=== PATIENT | male | born 1980 | race Hispanic/Latino ===

== ENCOUNTER 2021-06-30 22:43 | Emergency (ER) | payer SELFPAY ==
[2021-06-30 22:49] VITALS: BP 153/100
[2021-06-30] MEDS ORDERED: SODIUM CHLORIDE 0.9% 1000 ML 1,000 ML IV ONE (23:04)
--- NOTE | 2021-06-30 23:11 | Emergency Department Report ---
ED Head Trauma HPI - General Chief complaint: Nausea/Vomiting/Diarrhea Stated complaint: NAUSEA/VOMITING Time Seen by Provider: 06/30/21 22:55 Source: EMS, old records reviewed (from [facility]) Mode of arrival: Ambulatory Limitations: No Limitations - History of Present Illness Initial comments: 40-year-old male with a past medical history of PTSD, anxiety, and WPW presents to the hospital complaining of nausea, vomiting, palpitations after a head in jury. Patient is currently on a 1013 at [facility] signed on June 23 secondary to suicide attempt and anxiety. As per [facility] HPI patient visiting [facility], ran out of money, was stranded had a bad panic attack and tried to hang himself. [facility] around 1[facility] today he was struck in the head by a a very hard basketball causing him to see stars but not pass out. Since head injury he has had a headache not improved with Tylenol which was severe but now currently rated 3/10 in intensity with persistent pressure. He has had multiple episodes of nausea and vomiting with mild hematemesis after retching. He also reports that his blood pressure shot up and his heart rate went to 160s as documented by pulse ox at the facility. Patient here today stating that vomiting has improved but nausea persists. Patient is concerned that he has brain swelling and is at risk for heart attack. No chest pain reported. In addition to WPW patient has a history of prolonged QT. He is not currently on any cardiac medication and does not currently follow-up with a surgical technology instructor. He has never received ablation. Patient reports he had COVID 3 weeks ago As per [facility] notes patient has a history of severe panic attacks with multiple ER visits for the same. His most recent documented progress note on June 28 patient was noted to be irritable, anger, intrusive, manic, anxious, needy, with disorganized behavior, manipulative, and refusing medication - Related Data Allergies/Adverse reactions: Allergies Allergy/AdvReac Type Severity Reaction Status Date / Time promethazine [From Phenergan] Allergy Hives Verified 06/30/21 23:06 ondansetron [From Zofran] AdvReac Unknown Verified 06/30/21 23:06 ED Review of Systems ROS: Stated complaint: NAUSEA/VOMITING Other details as noted in HPI Comment: All other systems reviewed and negative ED Past Medical Hx - Past Medical History Hx Psychiatric Treatment: (PTSD,ANXIETY) Additional medical history: WPW ED Physical Exam - General Limitations: No Limitations - Other Other exam information: General: No acute distress Head: Atraumatic Eyes: normal appearance ENT: Moist mucous membranes Neck: Normal appearance, no midline tenderness Chest: Clear to auscultation bilaterally CV: Mild tachycardia regular Abdomen: Soft, normal bowel sounds, nontender, nondistended, no rebound or guarding Back: Normal inspection Extremity: Normal inspection, full range of motion Neuro: Alert O x 3, no facial asymmetry, speech clear, no gross motor sensory deficit Psych: Appropriate behavior, appears anxious, leg shaking throughout interview Skin: No rash ED Course Vital Signs 06/30/21 22:49 Temperature 98.9 F Pulse Rate 100 H Respiratory 18 Rate Blood Pressure 153/100 [Left] O2 Sat by Pulse 99 Oximetry - Reevaluation(s) Reevaluation #1: 06/30/21 23:31 pt refuses IV, wants to orally hydrate. Also refused Nausea med - Lab Data Result diagrams: 06/30/21 23:00 06/30/21 23:00 Lab Results 06/30/21 06/30/21 06/30/21 Range/Units 23:00 23:00 23:00 WBC 6.5 (4.5-11.0) K/mm3 RBC 4.79 (3.65-5.03) M/mm3 Hgb 14.8 (11.8-15.2) gm/dl Hct 42.8 (35.5-45.6) % MCV 89 (84-94) fl MCH 31 (28-32) pg MCHC 35 H (32-34) % RDW 12.8 L (13.2-15.2) % Plt Count 195 (140-440) K/mm3 Lymph % (Auto) 21.9 (13.4-35.0) % Bucks % (Auto) 7.9 H (0.0-7.3) % Eos % (Auto) 1.4 (0.0-4.3) % Baso % (Auto) 0.6 (0.0-1.8) % Lymph # (Auto) 1.4 (1.2-5.4) K/mm3 Bucks # (Auto) 0.5 (0.0-0.8) K/mm3 Eos # (Auto) 0.1 (0.0-0.4) K/mm3 Baso # (Auto) 0.0 (0.0-0.1) K/mm3 Seg Neutrophils % 68.2 (40.0-70.0) % Seg Neutrophils # 4.5 (1.8-7.7) K/mm3 Sodium 143 (137-145) mmol/L Potassium 4.2 (3.6-5.0) mmol/L Chloride 105.2 (98-107) mmol/L Carbon Dioxide 25 (22-30) mmol/L Anion Gap 17 mmol/L BUN 10 (9-20) mg/dL Creatinine 0.8 (0.8-1.3) mg/dL Estimated GFR > 60 ml/min BUN/Creatinine Ratio 13 % Glucose 116 H (75-100) mg/dL Calcium 8.8 (8.4-10.2) mg/dL Magnesium 1.90 (1.7-2.3) mg/dL Total Bilirubin 0.20 (0.1-1.2) mg/dL AST 19 (5-40) units/L ALT 32 (7-56) units/L Alkaline Phosphatase 88 (35-129) units/L Total Protein 6.8 (6.3-8.2) g/dL Albumin 4.3 (3.9-5) g/dL Albumin/Globulin Ratio 1.7 % TSH 2.620 (0.270-4.200) mlU/mL Free T4 1.17 (0.76-1.46) ng/dL - EKG Data -: EKG Interpreted by Tn EKG shows normal: sinus rhythm, intervals (qtc 441 normal), QRS complexes (qrsd 89 normal), ST-T waves (no stemi) Rate: normal (99) When compared to previous EKG there are: previous EKG unavailable - Radiology Data Radiology results: report reviewed CT HEAD WITHOUT CONTRAST INDICATION / CLINICAL INFORMATION: head injury, n,v. TECHNIQUE: All CT scans at this location are performed using CT dose reduction for ALARA by means of automated exposure control. COMPARISON: None available. FINDINGS: HEMORRHAGE: None. EXTRA-AXIAL SPACES: Normal in size and morphology for the patient's age. VENTRICULAR SYSTEM: Normal in size and morphology for the patient's age. CEREBRAL PARENCHYMA: No significant abnormality. No acute territorial infarct. MIDLINE SHIFT / HERNIATION: None. CEREBELLUM / BRAINSTEM: No significant abnormality. ORBITS: Normal as visualized. SOFT TISSUES: No significant abnormality. SKULL: No significant abnormality. PARANASAL SINUSES / MASTOID AIR CELLS: Normal as visualized. ADDITIONAL FINDINGS: None. IMPRESSION: 1. No acute intracranial abnormality. - Medical Decision Making 40-year-old male currently at [facility] for anxiety and with suicide attack but reports a history of WPW came to the ED with concerns of head injury secondary to nausea and vomiting after being struck in the head by a basketball. Patient also reports his heart rate went up to 160s. EKG shows heart rate of 99 without a significant delta wave noted. He has normal QTC and QRS intervals. He appears visibly anxious on exam. He refused IV access is antiemetics and tolerated p.o. hydration. Labs and CT head did not show any acute abnormalities. Patient will be discharged back to [facility] Critical Care Time: No Critical care attestation.: If time is entered above; I have spent that time in minutes in the direct care of this critically ill patient, excluding procedure time. ED Disposition Clinical Impression: Minor head injury without loss of consciousness, Nausea and vomiting, Anxiety, Palpitations Disposition: 01 HOME / SELF CARE / HOMELESS Is pt being admited?: No Does the pt Need Aspirin: No Condition: Stable Instructions: Nausea and Vomiting, Adult, Palpitations, [id number], Managing Anxiety, Adult, Head Injury, Adult Additional Instructions: Take Tylenol as needed for pain. Follow-up with your doctor or doctor/clinic provided. Return if symptoms worsen as indicated by your discharge instructions. Referrals: NALINI DURAN MD [Staff Physician] - 3-5 Days (cardiology ) [facility] [Provider Group] - 3-5 Days (primary care clinic ) Time of Disposition: 00:23
[2021-06-30 23:25] LABS: Basophils % (Auto) 0.6 % (0.0-1.8); Eosinophils # (Auto) 0.1 K/mm3 (0.0-0.4); Eosinophils % (Auto) 1.4 % (0.0-4.3); Hematocrit 42.8 % (35.5-45.6); Hemoglobin 14.8 gm/dl (11.8-15.2); Lymphocytes # (Auto) 1.4 K/mm3 (1.2-5.4); Lymphocytes % (Auto) 21.9 % (13.4-35.0); Mean Corpuscular HGB Conc 35 % (32-34); Mean Corpuscular Volume 89 fl (84-94); Monocytes # (Auto) 0.5 K/mm3 (0.0-0.8); Monocytes % (Auto) 7.9 % (0.0-7.3); Platelet Count 195 K/mm3 (140-440); Red Blood Count 4.79 M/mm3 (3.65-5.03); Red Cell Distribution Width 12.8 % (13.2-15.2)
[2021-06-30 23:48] LABS: Alanine Aminotransferase 32 units/L (7-56); Albumin 4.3 g/dL (3.9-5); BUN/Creatinine Ratio 13; Blood Urea Nitrogen 10 mg/dL (9-20); Calcium 8.8 mg/dL (8.4-10.2); Hemolysis Index 9
[2021-06-30 23:59] LABS: Free T4 (Free Thyroxine) 1.17 ng/dL (0.76-1.46)
--- NOTE | 2021-07-01 00:15 | Cat Scan Report ---
CT HEAD WITHOUT CONTRAST INDICATION / CLINICAL INFORMATION: head injury, n,v. TECHNIQUE: All CT scans at this location are performed using CT dose reduction for ALARA by means of automated exposure control. COMPARISON: None available. FINDINGS: HEMORRHAGE: None. EXTRA-AXIAL SPACES: Normal in size and morphology for the patient's age. VENTRICULAR SYSTEM: Normal in size and morphology for the patient's age. CEREBRAL PARENCHYMA: No significant abnormality. No acute territorial infarct. MIDLINE SHIFT / HERNIATION: None. CEREBELLUM / BRAINSTEM: No significant abnormality. ORBITS: Normal as visualized. SOFT TISSUES: No significant abnormality. SKULL: No significant abnormality. PARANASAL SINUSES / MASTOID AIR CELLS: Normal as visualized. ADDITIONAL FINDINGS: None. IMPRESSION: 1. No acute intracranial abnormality. Signer Name: Justice Keith MD Signed: 07/01/2021 12:11 AM Workstation Name: [id number]
--- NOTE | 2021-07-03 09:19 | Electrocardiograph Report ---
[facility] Test Date: 2021-06-30 Test Time: 23:20:24 Pat Name: LAURITA CAREY Department: Room: Gender: M Designer Architect: SONIYA : 1980 Requested By: DENISE MEYERS Order Number: [id number] Reading MD: Michael Boland Measurements Intervals [place] Rate: 99 P: 46 DE: 171 QRS: 31 QRSD: 89 T: 44 QT: 344 QTc: 441 Interpretive Statements Sinus rhythm No previous ECG available for comparison Electronically Signed On 07-03-2021 9:19:26 EST by Michael Boland
== END 2021-07-01 00:35 | disposition home or self-care (01) ==
LOC: ED 22:43
DX: S09.90XA Unspecified injury of head, initial encounter (principal); R11.2 Nausea with vomiting, unspecified; R00.2 Palpitations; F43.10 Post-traumatic stress disorder, unspecified; W21.05XA Struck by basketball, initial encounter; Y93.89 Activity, other specified; Y92.89 Other specified places as the place of occurrence of the external cause; Y99.8 Other external cause status
CPT/HCPCS: 36415; 70450; 80053; 83735; 84439; 84443; 85025; 93005; 99284